=== PATIENT | female | born 1955 | race Caucasian/White ===

== ENCOUNTER 2025-01-31 10:55 | Outpatient (AMB) | payer OTHER, SELFPAY ==
--- NOTE | 2025-01-31 10:57 | MHC.OFFVIS ---
Vital Signs 01/31/25 11:12 Height 5 ft 3 in Weight 211 lb 3 oz BMI 37.4 BP 112/80 Blood Pressure Location Rt brachial Position Sitting Pulse 74 Pulse Source Pulse Oximeter Pulse Oximetry (%) 99 Oxygen Delivery Method Room Air Intake Visit Reasons: lt shoulder pain/ inj Intake Note: Patient presents for shoulder pain and injection. Allergies No Known Allergies Allergy (Verified 01/31/25 11:03) Medication List - Last Reconciled 01/31/25 by Elba Silverman MD amlodipine 5 mg PO DAILY aspirin (Adult Aspirin Regimen) 81 mg PO DAILY atorvastatin 80 mg PO DAILY budesonide-formoterol 160-4.5 mcg/actuation inhalation docusate sodium 100 mg PO DAILY hydrochlorothiazide 25 mg PO DAILY metoprolol tartrate 50 mg PO BID montelukast 10 mg PO DAILY semaglutide (Ozempic) 2 mg subcut QWEEK semaglutide (Ozempic) mg subcut HPI Comments Details: Patient is a 61-year-old year old female with hypertension, hyperlipidemia here today for evaluation of left shoulder pain. Patient states that about October she woke up with left shoulder pain. Had x-rays at an outside facility which was normal. No antecedent trauma, falls or strenuous activity. Currently in physical therapy for the past 2 weeks with no improvement [facility] Surgical History (Updated 01/31/25 @ 11:07 by ANGELA Lim) History of total right knee replacement Family History (Updated 01/31/25 @ 11:10 by ANGELA Lim) Mother Hypertension Sister Hypertension Father Emphysema lung Social History (Updated 01/31/25 @ 11:11 by ANGELA Lim) Household Members: Family Housing: House Alcohol intake: former Comment: rare Patient Tobacco Use Status: Never used Tobacco Current occupational status: employed Current occupation: [employer] Employee Review of Systems Const Details: Review of Systems Constitutional: Denies fever, chills, weight loss ENT: Denies vision changes, eye pain or eye redness, dental caries, dry mouth GI: Denies nausea, vomiting, diarrhea, abdominal pain, change in BM Pulm: Denies SOB, CAMPBELL, hemoptysis, wheezing Cards: Denies chest pain, palpitations Skin: Denies Raynaud's, rash, nail changes, photosensitivity, HIGH LEAD YARDER: Denies headaches, weakness, paresthesias, recurrent falls MSK: as per HPI All other systems reviewed and are unremarkable except noted above Physical Exam Vital signs reviewed Physical Examination CONSTITUITIONAL Patient alert and cooperative. Well appearing and in no apparent painful distress MSK Shoulders: Full range of active range of motion without pain of the right shoulder. Decreased active range of motion of the left shoulder up to about 120 degrees. No tenderness, weakness, swelling, increased warmth or erythema. Positive Krystal[facility] Office Procedures AMB Joint Injection/Aspiration Joint Injection/Aspiration Details: Procedure was explained to the patient and consent was obtained. ? The area of interest was identified and confirmed with patient. ?This was subsequently cleaned with chlorhexidine x3. ? The area was then anesthetized using ethyl chloride spray. 40 mg Kenalog with 1 cc 1% lidocaine was injected without issue. ?Minimal to no bleeding. ?Patient tolerated procedure. Primary Site: left shoulder Prep: site was prepped using aseptic technique and ethochloride spray was applied Injected: 40 mg of, Kenalog, 1% plain lidocaine and in the subcromial space Approach Used: other Procedure: The patient tolerated the procedure well Coding 37430 - Large joint Procedure code (CPT) selection complete Office Meds lidocaine (PF) 10 mg/mL (1 %) injection solution Performing Provider: Elba Silverman MD Performing Location: [facility] [place] Rheumatology Administered by: Elba Silverman MD on 01/31/25 11:35 Dose Route Admin Location Dispensed Lot Number Expiration Date [facility] Dray Driver 1 mL Infiltration left shoulder 2 mL [id number] 12/02/26 92256-093-77 [facility] Kenalog 40 mg/mL suspension for injection Performing Provider: Elba Silverman MD Performing Location: [facility] Rheumatology Administered by: Elba Silverman MD on 01/31/25 11:35 Dose Route Admin Location Dispensed Lot Number Expiration Date [facility] Dray Driver 40 mg intra-articular left shoulder 1 mL [id number] 04/03/26 [address]-8 [employer] Results Reviewed Results Reviewed: No results to review Assessment & Plan Assessment & Plan (1) Left shoulder pain: Code(s): M25.512 - Pain in left shoulder Qualifiers: Chronicity: acute Qualified Code(s): M25.512 - Pain in left shoulder Plan: #Left shoulder pain Patient is a 69-year-old female here today for evaluation of left shoulder pain. Patient likely has some rotator cuff tendonitis. No evidence of frozen shoulder she is able to move joint at least a bit in all planes. Status post steroid injection today. She can continue PT and follow up as needed Plan I spent 30 minutes reviewing the record and labs, taking a history, examining the patient, discussing the treatment plan, ordering diagnostic work up and documenting in the medical record Orders: Orders AMB Joint Injection/Aspiration Today M25.512 - Pain in left shoulder Medications: New lidocaine (PF) 1 mL Infiltration ONCE 2 mL 0RF M25.512 - Pain in left shoulder Kenalog (triamcinolone acetonide) 40 mg intra-articular ONCE 1 mL 0RF NS M25.512 - Pain in left shoulder Coding Level of Care Code New Pt Level 3 (99112) Diagnoses Acute pain of left shoulder M25.512 Chronicity: acute CPT Codes Coding - 44860 Large joint: 65756 - Large joint ([id number])
[2025-01-31 11:12] VITALS: BP 112/80; PULSE 74; O2SAT 99; BMI 37.4
--- OUTSIDE RECORDS SUMMARY | 2025-01-31 12:26 | XMS_ITS | Patient Health Record ---
Author Organization [facility] [place] Address [address] [facility] [place] [address] Care Team Providers Care Healthcare Marketer Name Role Phone Staci Patricia Primary Care Provider Unavailabl e Black, Sophie Unavailable [phone] Allergies Allergen (clinical drug ingredient) Drug/Non Drug Allergy documented on EMR Reaction Allergy Type Onset Date Status Bee Stings (uncoded) Unknown Allergy Active Laurens Nuts (uncoded) myke Allergy Active Shrimp Flavor hives Drug Allergy Act david Reason For Referral No Information Medications Medication SIG (Take, Route, Frequency, Duration) Notes Start Date End Date Status hydroCHLOROthiazide 25 MG as directed Orally Active Atorvastatin Calcium 40 MG 1 tablet Oral ly Once a day for 30 day(s) Active Feldene 20 MG 1 capsule with food Orally Once a day for 30 day(s) 10/18/2019 Active amLODIPine Besylate 5 MG 1 tablet Orally Once a day for 30 day(s) Active Aspirin 81 81 MG 1 tablet Orally Once a day for 30 day(s) Active Metoprolol Succinate 50 MG 1 capsule Ora lly Once a day for 30 day(s) Active Social History Tobacco Use: Social History Observation [...] Are you an other tobacco user? 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 Plan Of Treatment No Information Insurance Providers Payer Name Payer Address Payer Phone Subscriber Number Group Number Insured Name Patient Relationship to Insured Coverage Start Date Coverage End Date [facility] re-[id number] [address] [address] [place] [address] [id number] Babak Espinal Self - patient is the insured Medical (General) History Medical History History ICD Code asthma Hypertension Left Hip Prosthesis Stent Left Diagonal Back pain Hiatal hernia Reflux ( GERD) Measles Chicken pox Vascular grafts Joint implants/screws Heart disease Surgical History Surgery Date(Month/Year) hip surgery, left prosthesis 2017 Stent Left Diagonal 2009? Left Parotid Tumor 2012 Umbilical hernia 1962
--- OUTSIDE RECORDS SUMMARY | 2025-01-31 12:27 | XMS_ITS ---
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 Generated for Sherrelli delmis/Marva/eTransmitting on:?01/31/2025 12:26 PM EDT
--- OUTSIDE RECORDS SUMMARY | 2025-01-31 12:27 | XMS_ITS ---
Author Organization [facility] [place] Address [address] [place] [address] Care Team Providers Care Sld Educational Aide Name Role Phone Staci Patricia Primary Care Provider Sophie Cha [phone] Allergies Allergen (clinical drug ingredient) Drug/Non Drug Allergy documented on EMR Reaction Allergy Type Onset Date Status Bee Stings (uncoded) Unknown Allergy Active Skipwith Nuts (uncoded) myke Allergy Active Shrimp Flavor [...] 01/19/2024 Encounters Encounter [facility] [address] [facility]/19/[facility] Sophie Stoddard Plan Of Treatment No Information Progress Notes * Babak HOLLEYDOB:0 1955 (69 yo F)Acc No.[id number]:01/19/2024 Progress Notes Patient:?Emilia HOLLEY rvis Provider:?Sophie Stoddard DPM :1955???Age:68 Y???Sex:Female D ate:01/19/2024 Address:[address] [place] [address], [id number] Pcp:Staci Patricia Subjective: * Chief Complaints: * ??? * ROS:?General/Constitutional:?Nausea?denies.?Vomiting?denies.?Hunger Thirst?denies.?Loss appetite?denies.?Chills?denies.?Fatigue?denies.?Fever?denies.?Night Sweats?denies.?Unexplained weight loss?denies.?Unexplained weight gain?denies.?HEENTM:?Dentures?denies.?Dizziness?denies.?Glasses/contacts?admits.?Retinopathy?de nies.?Blurred/double vision?denies.?TMJ?denies.?Discharge/drainage?denies.?Implants?denies.?Sore throat?denies.?Dental implants?denies.?Hard of hearing ?denies.?Difficulty chewing/swallowing/speaking?denies.?Nose bleeds?denies.?Sore mouth?denies.?Respiratory:?On Oxygen?denies.?Pneumonia/pleurisy?denies.?Bronchitis?denies.?Emphysema?denies.?C oughing?denies.?Cough blood?denies.?Shortness of breath?denies.?Wheezing?admits.?Cardiovascular:?Pacemaker?denies.?MVP?denies.?WPW?denies.?CHF?denies.?Heart attack?denies.?Septal defect?denies.?Rapid beat?denies.?Chest pain ?denies.?Atrial Fib.?denies.?Murmur/Palpitations?denies.?Gastrointestinal:?Hemorrhoids?denies.?Stomach/Abdominal pain?denies.?Dark blood stool?denies.?Irritable bowel ?denies.?Constipation?denies.?Diarrhea?denies.?Hematology:?Swelling?denies.?Clots?denies.?Varicose Veins?denies.?Bruising?denies.?Bleeding problem?denies.?Genitourinary:?Blood urine?denies.?Frequent/Painfu/urination/bladder control?denies.?Kidney stones?denies.?Infection (UTI)?denies.?Nephropathy?denies.?sex trans dis (STD)?denies.?Prostate?denies.?Musculoskeletal:?Hammertoes?denies.?Bunions?admits.?Back Pain?denies.?Muscle Cramps/ Resting?admits.?Muscle cramps / walking?admits.?Generalized aches and pains?denies.?Weakness?denies.?Integ.:?Guerrero?denies.?Scars?denies.?Corns/calluses?denies.?Ingrown nails?admits.?Painful nails?admits.?Open Sores?denies.?Rashes?denies.?Neurologic:?Difficulty sleeping?denies.?Brain disorder?denies.?Numbness?denies.?Balance trouble?denies.?Confusion?denies.?Fainting/blackouts?denies.?Tingling?denies.?Tr emors?denies.? * Medical History:?Asthma, Hyp ertension, Left Hip Prosthesis, Stent Left Diagonal, Back pain, Hiatal hernia, Reflux ( GERD), Measles, Chicken pox, Vascular grafts, Joint implants/screws, Heart disease. * Surgical History:?hip surger y, left prosthesis 2016, Stent Left Diagonal 2009?, Left Parotid Tumor 2011, Umbilical hernia 1962. * Family History:?Mother: aliv e, diabetes, arthritis, stroke, high blood pressure.?Father: .?Maternal Grand Mother: diabetes, stroke.?Siblings: diabetes.? Father's Half-Sister - Cancer. * Social History:?Tobacco Use:?Tobacco Use/Smoking?Are you a:?nonsmoker ?Additional Findings: Tobacco Non-User?Aggressive non-smoker ?Tobacco use other than smoking?Are you an other tobacco user??No ???Drugs/Alcohol:?Drugs?Have you used drugs other than those for medical reasons in the past 12 months??No ?Alcohol Screen?Did you have a drink containing alcohol in the past year??No ?Points?0 ?Interpretation?Negative ???Miscellaneous:?Caffeine: yes, frequency:, 1-2 cups per day. ?Children: yes, 3. ?Exercise: no. ?Marital status: . 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 * Allergies:?Bee Stings, Brazi l Nuts: myke, Shrimp Flavor: hives. Objective: * Vitals:?Ht: 5 ft 3 in, Wt:21 5, BMI:38.08, Shoe size: 10-10.5, Ht-cm: 160.02 cm, Wt-k.52 kg. Assessment: Plan: * Treatment: * Images: * The named appointment provid er may or may not be the originator of this progress note, and it is not deemed complete until electronically signed by the appointment provider. Sign off status: Pending * Provider:?Sophie Stoddard DPM Date:?2023 Generated for David benites/Marva/Low on:?01/31/2025 12:27 PM EDT
--- OUTSIDE RECORDS SUMMARY | 2025-01-31 12:27 | XMS_ITS ---
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 Generated for Printi delmis/Marva/eTransmitting on:?01/31/2025 12:27 PM EDT
== END 2025-01-31 11:34 | disposition home or self-care (01) ==
LOC: HO.RHE 10:55
PROVIDERS: PCP Internal Medicine; Visit Provider Student in an Organized Health Care Education/Training Program
DX: M25.512 Pain in left shoulder (principal)
CPT/HCPCS: 20610; 99203

== ENCOUNTER → 2025-01-31 10:55 | Outpatient (BNVA) | payer OTHER, SELFPAY | PROVIDERS: PCP Internal Medicine; Visit Provider Student in an Organized Health Care Education/Training Program | DX: M25.512 Pain in left shoulder (principal) | CPT/HCPCS: 20610; J3300 ==

== ENCOUNTER 2025-03-05 13:01 | Outpatient (REF) | payer OTHER, SELFPAY ==
--- NOTE | ~2025-03-05 | XR_ITS ---
EXAMINATION: XR SHOULDER 2 OR MORE VIEWS LEFT HISTORY: M25.512 - Pain in left shoulder COMPARISON: There are no prior studies available for comparison. FINDINGS: Three views of the left shoulder are submitted. Osseous mineralization is normal. There is no fracture or dislocation. The glenohumeral joint space is maintained. There is moderate narrowing of the AC joint. The soft tissues are unremarkable. XR/XR shoulder LT min 2V IMPRESSION: Moderate narrowing of the AC joint. Electronically signed by: Greg Field MD 03/05/2025 03:21 PM EDT
--- OUTSIDE RECORDS SUMMARY | 2025-03-05 14:00 | XMS_ITS | Patient Health Record ---
Author Organization [facility] Address [address] [facility] [place] [address] Care Team Providers Care Nuisance Wildlife Control Operator Name Role Phone Staci Patricia Primary Care Provider Unavailabl e Black, Sophie Unavailable [phone] Allergies Allergen (clinical drug ingredient) Drug/Non Drug Allergy documented on EMR Reaction Allergy Type Onset Date Status Bee Stings (uncoded) Unknown Allergy Active [place] Nuts (uncoded) myke Allergy Active Shrimp Flavor [...] Problem Status W/U Status Risk Notes Problem [id number] Hammer toe of right foot (M20.41) Active confirmed Problem [id number] 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
== END 2025-03-05 13:02 | disposition home or self-care (01) ==
LOC: HO.HOSX 13:01
PROVIDERS: Visit Provider Physician Assistant
DX: M25.512 Pain in left shoulder (principal)
CPT/HCPCS: 73030

== ENCOUNTER 2025-03-05 13:05 | Outpatient (AMB) | payer OTHER, SELFPAY ==
--- NOTE | 2025-03-05 13:22 | A.OFFVIS_ITS ---
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 Patient was seen with Rheumatology on 01/31/25 for her shoulder pain that started around December after she felt a pop with getting dressed. She was given a shoulder injection that had helped a little, as she is now able to sleep on her right side. She also attended physical therapy that provided a little more mobility however she continues to have limited ROM. Her discomfort is located at her bicep area and travels through her clavicle. States her pain is rarely in her shoulder. Allergies bee pollen Allergy (Verified 03/05/25 13:25) Anaphylaxis shrimp Allergy (Verified 03/05/25 13:25) Hives nuts Allergy (Uncoded 03/05/25 13:25) Anaphylaxis Medication List - Last Reconciled 03/05/25 by Kimberlyn Ly PA-C amlodipine 5 mg PO DAILY aspirin (Adult Aspirin Regimen) 81 mg PO DAILY atorvastatin 80 mg PO DAILY budesonide-formoterol 160-4.5 mcg/actuation inhalation docusate sodium 100 mg PO DAILY hydrochlorothiazide 25 mg PO DAILY magnesium glycinate mg PO metoprolol tartrate 50 mg PO BID montelukast 10 mg PO DAILY multivitamin 1 tab PO DAILY semaglutide (Ozempic) mg subcut HPI HPI 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 She states she was getting dressed and reached and felt pain in the shoulder. She states the pain is constant with laying on her side. The pain does radiate down her arm and also into the small and ring finger. She has pain along the deltoid and clavicle with reaching . She also has mild discomfort along the shoulder joint. She has tension along the trap. She has been working with PT. She had a left shoulder injection approx 5 weeks ago. She states her ROM did improve and she is able to sleep on the affected side, but she continues to have limitations with other activities. [facility] Surgical History (Updated 03/05/25 @ 13:29 by NATHALY Bergeron) Hx of heart artery stent Hx of parotidectomy History of hip surgery History of total right knee replacement Family History (Updated 04/30/25 @ 11:10 by ANGELA Lim) Mother Hypertension Sister Hypertension Father Emphysema lung Social History (Updated 01/31/25 @ 11:12 by ANGELA Lim) Household Members: Family Housing: House Alcohol intake: former Comment: rare Patient Tobacco Use Status: Never used Tobacco Current occupational status: employed Current occupation: [employer] Employee Review of Systems Const All systems reviewed & are unremarkable except as noted in HPI and below Physical Exam Vital Signs: BMI result Body Mass Index 37.4 Const General: cooperative and no acute distress Orientation/consciousness: patient oriented x3 Resp Effort & Inspection: normal respiratory effort and able to speak in complete sentences Cardio Peripheral pulses: Peripheral pulses 2+ throughout Neuro General: patient oriented x3 Extrem Other: Left shoulder normal to inspection. She has full range of motion in all planes excluding forward flexion which is limited to 100 degrees. 5/5 rotator cuff strength with mild discomfort. She has a positive [place]'s. Positive [place]. Neurovascularly intact. Results Reviewed Results Reviewed: X-rays of the left shoulder obtained in the office today and reviewed by me are negative for any acute abnormalities. 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 Assessment & Plan Assessment & Plan (1) Biceps tendonitis on left: Code(s): M75.22 - Bicipital tendinitis, left shoulder Category: Medical Plan: Patient has had an injection with rheumatology with some success. She has been working with physical therapy and feels she would like to continue to work on continued strengthening exercises. We will also order an MRI of the left shoulder further evaluate the integrity of the rotator cuff. Once the scan is complete I will contact her to discuss the results. Orders: Orders XR shoulder LT min 2V Today M25.512 - Pain in left shoulder PT Evaluation and Treatment Today M75.22 - Bicipital tendinitis, left shoulder MR shoulder LT wo con Today S46.009A - Unspecified injury of muscle(s) and tendon(s) of the rotator cuff of unspecified shoulder, initial encounter Coding Level of Care Code New Pt Level 3 (67928) Complex EM visit Add On G2211 Diagnoses Biceps tendonitis on left M75.22
[2025-03-05 13:30] VITALS: BMI 37.4
== END 2025-03-05 14:21 | disposition home or self-care (01) ==
LOC: HO.HOS 13:06
PROVIDERS: PCP Internal Medicine; Visit Provider Physician Assistant
DX: M75.22 Bicipital tendinitis, left shoulder (principal)
CPT/HCPCS: 99203

== ENCOUNTER → 2025-03-05 13:08 | Outpatient (BNV) | payer OTHER, SELFPAY | PROVIDERS: Visit Provider Radiology Diagnostic Radiology | DX: M25.812 Other specified joint disorders, left shoulder (principal) | CPT/HCPCS: 73030 ==

== ENCOUNTER → 2025-03-15 17:48 | Outpatient (BNV) | payer OTHER, SELFPAY | PROVIDERS: PCP Internal Medicine; Visit Provider Radiology Diagnostic Radiology | DX: M75.112 Incomplete rotator cuff tear or rupture of left shoulder, not specified as traumatic (principal) | CPT/HCPCS: 73221 ==

== ENCOUNTER 2025-03-15 17:51 | Outpatient (REF) | payer OTHER, SELFPAY ==
--- NOTE | ~2025-03-15 | MR_ITS ---
EXAMINATION: MR SHOULDER, LEFT CLINICAL INFORMATION: Unspecified injury of muscles and tendons of the rotator. Vein left shoulder since November of 2024. PT minimally helpful. Limited range of motion. 69-year-old female. COMPARISON: None TECHNIQUE: Multiplanar multisequence MR imaging of the LEFT shoulder was done without IV contrast. Examination performed on a 1.5 Akosua Siemens unit utilizing standard sequences. FINDINGS: Rotator Cuff and Biceps Tendon: Supraspinatus: There is insertional tear of the most anterior tendon involving the mid distal footplate attachment measuring 5 mm in coronal diameter. This tear measures 8 mm in diameter. In addition, there is an interstitial tear arising from the medial footplate attachment, extending to the approximate myotendinous junction (series 8, image 10; series 11, image 6). This tear measures 16 mm in coronal, by 13 mm in AP diameter. There is tendinopathy of the entire tendon with increased signal and mild thickening. No tendinous retraction or definite full-thickness tear seen. The muscle belly is normal in bulk. Infraspinatus: There is a focal myotendinous region of fluid signal in the anterior fibers of the tendon at the myotendinous junction, measuring 4 x 15 mm (series 8, image 15; series 11, image 13). The tendon is otherwise intact and normal in signal. Muscle belly is otherwise normal. Subscapularis: Mildly increased signal of the tendon is present consistent with tendinopathy. There is no discrete tear. The muscle belly is normal. Teres Minor: Intact and normal in signal. There is no discrete tear. Normal muscle belly. Biceps Long Head: Normally located within the bicipital groove. Normal morphology. The tendon within the rotator interval demonstrates mild thickening and diffusely increased signal consistent with tendinopathy. The anchor is intact. AC Joint and Acromiohumeral Arch: There is a type III acromion. No significant undersurface spurring is evident. There is moderate degenerative arthropathy of the AC joint with joint capsular distention, mild periarticular edema, and mild undersurface and moderate superior surface spurring. There is no supraspinatus outlet stenosis. Glenohumeral Joint and Labrum: There is normal joint fluid. There is no effusion. There are no discrete full-thickness cartilaginous abnormalities identified of the articular humeral head or glenoid. There are no regions of subchondral bone plate edema. Superior labrum has mildly irregular signal, suspicious for but not definitive for superior labral tearing. This extends into the anterior labrum, also suspicious for tearing. The inferior labrum and posterior labrum appear intact. Osseous Structures: No gross bone marrow edema to suggest contusion or fracture. No abnormal infiltrating bone marrow signal is evident. There is a small amount of edema at the greater tuberosity medial footplate, at the region of insertional tearing. Spino-glenoid Notch: Normal. Quadrilateral Space: Normal. Other: There is mildly increased signal throughout the subacromial/subdeltoid bursa suggestive of bursitis. The glenohumeral ligaments appear intact without definite thickening. MR/MR shoulder LT wo con IMPRESSION: 1. Partial insertional tear of the most anterior supraspinatus footplate attachment. In addition, there is an interstitial tear of the supraspinatus tendon arising from the lateral footplate attachment extending to the myotendinous junction. 2. There is a focal myotendinous injury of the infraspinatus tendon, anterior aspect. 3. Tendinopathy of the long head of the biceps tendon within the rotator interval. No long head biceps tear. 4. Mild degenerative arthropathy of the AC joint and glenohumeral joint. No significant cartilaginous defect. 5. Suspect there is degenerative type superior and anterior labral tearing. 6. Mild subacromial/subdeltoid bursitis. Electronically signed by: Stewart Berger MD 03/16/2025 08:16 AM EDT
--- OUTSIDE RECORDS SUMMARY | 2025-03-15 18:25 | XMS_ITS | Patient Health Record ---
Author Organization [facility] Address [address] [facility] [place] [address] Care Team Providers Care Laboratory Immunologist Name Role Phone Staci Patricia Primary Care Provider Unavailabl e Black, Sophie Unavailable [phone] Allergies Allergen (clinical drug ingredient) Drug/Non Drug Allergy documented on EMR Reaction Allergy Type Onset Date Status Bee Stings (uncoded) Unknown Allergy Active [place] Nuts (uncoded) myke Allergy Active Shrimp Flavor [...] Problem Status W/U Status Risk Notes Problem [id number] Hammer toe of right foot (M20.41) Active confirmed Problem [id number] 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
== END 2025-03-15 17:52 | disposition home or self-care (01) ==
LOC: HO.MRI 17:51
PROVIDERS: PCP Internal Medicine; Visit Provider Physician Assistant
DX: S46.002D Unspecified injury of muscle(s) and tendon(s) of the rotator cuff of left shoulder, subsequent encounter (principal)
CPT/HCPCS: 73221

== ENCOUNTER 2025-04-26 11:57 | Outpatient (AMB) | payer OTHER, SELFPAY ==
--- NOTE | 2025-04-26 11:57 | A.OFFVIS_ITS ---
Vital Signs 04/26/25 11:59 Height 5 ft 3 in Weight 211 lb BMI 37.4 Intake Visit Reasons: TH- MRI Shoulder LT review Intake Note: Babak is a 69 year old female who is scheduled for a telephone visit to discuss MRI results of left shoulder. Allergies bee pollen Allergy (Verified 04/26/25 11:59) Anaphylaxis shrimp Allergy (Verified 04/26/25 11:59) Hives nuts Allergy (Uncoded 04/26/25 11:59) Anaphylaxis HPI HPI TH- MRI Shoulder LT review: Details: 69-year-old female presents for telehealth visit left shoulder MRI review. The patient states that she has continued limitations with range of motion of the shoulder. She has had injections in the past with little relief but has not had formal physical therapy for the left shoulder. [facility] Surgical History Hx of heart artery stent Hx of parotidectomy History of hip surgery History of total right knee replacement Family History (Updated 01/31/25 @ 11:10 by ANGELA Lim) Mother Hypertension Sister Hypertension Father Emphysema lung Social History Household Members: Family Housing: House Alcohol intake: former Comment: rare Patient Tobacco Use Status: Never used Tobacco Current occupational status: employed Current occupation: [employer] Employee Review of Systems Const All systems reviewed & are unremarkable except as noted in HPI and below Physical Exam Vital Signs: BMI result Body Mass Index 37.4 Resp Effort & Inspection: normal respiratory effort and able to speak in complete sentences Telehealth Telehealth Telehealth Platform: Telephone Location of provider rendering services: practice address Patient Identification confirmed using: Name, : Yes Telehealth method: voice only Patient verbally consented to treatment: Yes Patient verbally consented to billing insurance company: Yes Patient informed of any privacy concerns related to visit: Yes Minutes spent on Phone/Video with Pt.: 10 Results Reviewed Results Reviewed: MR shoulder LT wo con IMPRESSION: 1. Partial insertional tear of the most anterior supraspinatus footplate attachment. In addition, there is an interstitial tear of the supraspinatus tendon arising from the lateral footplate attachment extending to the myotendinous junction. 2. There is a focal myotendinous injury of the infraspinatus tendon, anterior aspect. 3. Tendinopathy of the long head of the biceps tendon within the rotator interval. No long head biceps tear. 4. Mild degenerative arthropathy of the AC joint and glenohumeral joint. No significant cartilaginous defect. 5. Suspect there is degenerative type superior and anterior labral tearing. 6. Mild subacromial/subdeltoid bursitis. Assessment & Plan Assessment & Plan (1) Partial tear of left rotator cuff: Code(s): M75.112 - Incomplete rotator cuff tear or rupture of left shoulder, not specified as traumatic Category: Medical (2) Biceps tendonitis on left: Code(s): M75.22 - Bicipital tendinitis, left shoulder Category: Medical Plan MRI was reviewed with the patient. I explained to her partial tearing of the rotator cuff could be managed with physical therapy to help strengthen the shoulder and surrounding structures. Given her limitations with range of motion she may develop some improvement with this with therapy however if the tear is chronic there may be continued to be some limitations. She is interested in physical therapy and an order has been placed. She will contact the facility to make an appointment. If symptoms persist or worsen over the next 6-8 weeks she can contact our office and I would recommend she meet with Dr. Levin to discuss whether or not surgical intervention would be beneficial for her. Coding Level of Care Code Tele Est Pt Level 3 (77043) Complex EM visit Add On G2211 Diagnoses Partial tear of left rotator cuff M75.112 Biceps tendonitis on left M75.22
[2025-04-26 11:59] VITALS: BMI 37.4
--- OUTSIDE RECORDS SUMMARY | 2025-04-26 12:40 | XMS_ITS | Clinical Summary ---
Author Organization [facility] Address [address] [place] [address] Phone Care Team Providers Care Regional Transportation Manager Name Role Phone Staci Patricia MD Primary Care Provider + Allergies Active Allergy Reactions Criticality Noted Date Comments Bee Venom Protein (Honey Bee) Anaphylaxis High 11/08/2023 Shrimp 05/19/2023 Other reaction(s): hives Medications albuterol 90 mcg/actuation inhaler Inhale 2 puffs into the lungs every 6 (six) hours as needed for wheezing. 18 g 2 Active budesonide-form oterol (SYMBICORT) 160-4.5 mcg/actuation inhaler Inhale 2 puffs into the lungs 2 (two) times a day. 10.2 g 2 Active guaiFENesin-cod eine (ROBITUSSIN AC) 100-10 mg/5 mL liquid Take 5 mL (10 mg of codeine total) by mouth 4 (four) times a day as needed for cough. 120 mL 2 Active Additional Information Patient not taking.Reported on 11/08/2023 benzonatate (TESSALON) 100 MG capsule Take 1 capsule (100 mg total) by mouth 3 (three) times a day as needed for cough. 20 capsule 2 Active Additional Information Patient not taking.Reported on 11/08/2023 amLODIPine (NORVASC) 5 MG tablet Take 1 tablet by mouth every morning. 3 Active atorvastatin (LIPITOR) 80 MG tablet Take 1 tablet by mouth every morning. 3 Active hydroCHLOROthia zide (HYDRODIURIL) 25 MG tablet Take 1 tablet by mouth every morning. 3 Active montelukast (SINGULAIR) 10 mg tablet Take 1 tablet by mouth every morning. 3 Active Social History Tobacco Use Types Packs/Day Years Used Date Smoking Tobacco: Never Assessed Education Answer Date Recorded Are you interested in more education? Not on teresita e 01/30/2023 Are you concerned about learning? Not on file 01/30/2023 No 01/30/2023 No 01/30/2023 Digital Access Answer Date Recorded No 03/02/2023 No 03/02/2023 Reliable internet access at home? Not on file 03/02/2023 Device with a working camera? Not on file Intimate Partner Violence Answer Date R ecorded Are you denied basic needs s uch as food, clothing, or medical care? No 09/22/2022 In the past 12 months have y ou been in a relationship with a person who hurts, threatens, or tries to control you? No 09/22/2022 Are you denied basic needs s uch as food, clothing, or medical care? No 09/22/2022 In the past 12 months have y ou been in a relationship with a person who hurts, threatens, or tries to control you? No 09/22/2022 Comments Unknown Sex and Gender Information Value Date Recorded Sex Assigned at Not on file Legal Sex Female 8:42 AM EST Gender Identity Not on file Sexual Orientation Not on file Last Filed Vital Signs Vital Sign Reading Time Taken Comments Blood Pressure 129/66 09/22/2022 2:00 PM EST Pulse 94 09/22/2022 2:00 PM EST Temperature 36.7 C (98.1 F) 09/22/2022 9:17 AM EST Respiratory Rate 21 09/22/2022 2:00 PM EST Oxygen Saturation 98% 09/22/2022 2:00 PM EST Inhaled Oxygen Concentration - - Weight 99.8 kg (220 lb) 09/22/2022 9:17 AM EST Height 162.6 cm (5' 4 ) 09/22/2022 9:17 AM EST Body Mass Index 37.76 09/22/2022 9:17 AM EST Plan of Treatment Health Maintenance Due Date Last Done Comments LIPID PANEL 1956 POTASSIUM LEVEL 1956 DEPRESSION SCREENING 1968 SMOKING Hx and SMOKELESS TOBACCO SCREENING 1969 HEPATITIS C SCREENING 1974 SCREENING FOR DIABETES 1991 MAMMOGRAM 1996 COLOGUARD 2001 COLONOSCOPY 2001 COLORECTAL CANCER SCREENING 2001 FIT TEST 2001 FOBT 2001 SIGMOIDOSCOPY 2001 VIRTUAL COLONOSCOPY 2001 PNEUMOCOCCAL VACCINES (50+ years) (2 of 2 - PCV) 2006 07/04/2005 OSTEOPOROSIS SCREENING INITIAL (ONE-TIME) 2021 COVID-19 VACCINE ( season) 2024 07/16/2022, 01/22/2022, 07/07/2021, Additional history exists Adult Td,Tdap Booster 12/31/2027 12/30/2017 , 11/28/2007, 09/03/1996 RSV VACCINE (1 - 1-dose 75+ series) 2031 ZOSTER VACCINES Completed 12/12/2020, 08/13/2020 HEPATITIS A VACCINES Aged Out No long er eligible based on patient's age to complete this topic HIB VACCINES Aged Out No longer eligi ble based on patient's age to complete this topic MENINGOCOCCAL VACCINES (ACWY) Aged Out No longer eligible based on patient's age to complete this topic MENINGOCOCCAL VACCINES (B) Aged Out N o longer eligible based on patient's age to complete this topic Medical Devices Not on file Insurance [facility] POS POS POS POS [facility] POS Care Teams Regional Transportation Manager Relationship Specialty Start Date End Date Staci Patricia MD [address] [place] [phone] PCP - General Internal Medicine 11/08/23 Additional Source Comments The information contained in this document represents components of the legal health record. It is not the complete legal health record.[facility]
--- OUTSIDE RECORDS SUMMARY | 2025-04-26 12:40 | XMS_ITS | Patient Health Record ---
Author Organization [facility] Address [address] [place] [address] Care Team Providers Care Senior Qa Engineer Name Role Phone Staci Patricia Primary Care Provider Unavailabl e Black, Sophie Unavailable [phone] Allergies Allergen (clinical drug ingredient) Drug/Non Drug Allergy documented on EMR Reaction Allergy Type Onset Date Status Bee Stings (uncoded) Unknown Allergy Active [place] Nuts (uncoded) myke Allergy Active Shrimp Flavor hives Drug Allergy Act david Reason For Referral No Information Medications Medication SIG (Take, Route, Frequency, Duration) Notes Start Date End Date Status hydroCHLOROthiazide 25 MG as directed Orally Active Atorvastatin Calcium 40 MG 1 tablet Oral ly Once a day; Duration: 30 day(s) Active Feldene 20 MG 1 capsule with food Orally Once a day; Duration: 30 day(s) 10/18/2019 Active amLODIPine Besylate 5 MG 1 tablet Orally Once a day; Duration: 30 day(s) Active Aspirin 81 81 MG 1 tablet Orally Once a day; Duration: 30 day(s) Active Metoprolol Succinate 50 MG 1 capsule Ora lly Once a day; Duration: 30 day(s) Active Social History Tobacco Use: [...] Problem Status W/U Status Risk Notes Problem Acquired hammer toe of right foot ([id number] 105) Hammer toe of right foot (M20.41) Active confirmed Problem 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 Plan Of Treatment No Information Insurance Providers Payer Name Payer Address Payer Phone Subscriber Number Group Number Insured Name Patient Relationship to Insured Coverage Start Date Coverage End Date [id number] [address] [address] [place] [phone] [id number] Babak Espinal Self - patient is the insured Medical (General) History Medical History History ICD Code asthma Hypertension Left Hip Prosthesis Stent Left Diagonal Back pain Hiatal hernia Reflux ( GERD) Measles Chicken pox Vascular grafts Joint implants/screws Heart disease Surgical History Surgery Date(Month/Year) hip surgery, left prosthesis 2017 Stent Left Diagonal 2009? Left Parotid Tumor 2011 Umbilical hernia 1963
== END 2025-04-26 12:38 | disposition home or self-care (01) ==
LOC: HO.HOS 11:57
PROVIDERS: PCP Internal Medicine; Visit Provider Physician Assistant
DX: M75.112 Incomplete rotator cuff tear or rupture of left shoulder, not specified as traumatic (principal); M75.22 Bicipital tendinitis, left shoulder
CPT/HCPCS: 98966

== ENCOUNTER → 2025-04-26 11:57 | Outpatient (BNVA) | payer OTHER, SELFPAY | PROVIDERS: PCP Internal Medicine; Visit Provider Physician Assistant | DX: M75.112 Incomplete rotator cuff tear or rupture of left shoulder, not specified as traumatic (principal); M75.22 Bicipital tendinitis, left shoulder | CPT/HCPCS: 98966 ==

== ENCOUNTER 2025-06-01 07:00 | Outpatient (RCR) | payer OTHER, SELFPAY ==
[2024-12-29 06:56] VITALS: BP 130/70; PULSE 83; O2SAT 100
== END 2025-06-28 15:12 | disposition home or self-care (01) ==
LOC: HO.PTS 07:00
PROVIDERS: PCP Internal Medicine; Visit Provider Internal Medicine
DX: M75.82 Other shoulder lesions, left shoulder (principal)
CPT/HCPCS: 97012; 97014; 97035; 97110; 97140; 97162; 97164; 97530; 97535

== ENCOUNTER 2025-06-14 12:46 | Outpatient (AMB) | payer OTHER, SELFPAY ==
--- OUTSIDE RECORDS SUMMARY | 2024-01-19 08:00 | XMS_ITS ---
Author Organization [facility] t[place] Address [address] [facility] [place] [address] Care Team Providers Care Concrete Worker Name Role Phone Staci Patricia Primary Care Provider Sophie Cha [phone] Allergies Allergen (clinical drug ingredient) Drug/Non Drug Allergy documented on EMR Reaction Allergy Type Onset Date Status Bee Stings (uncoded) Unknown Allergy Active Boulder Nuts (uncoded) myke Allergy Active Shrimp Flavor hives Drug Allergy Act david Social History Tobacco Use: Social History Observation Description Date Details (start date - stop date) Never Smoker NA - NA Tobacco Use/Smoking Question Answer Notes Are you a: nonsmoker Additional Findings: Tobacco Non-User Aggressive non-smoker Alcohol Screen Question Answer Notes Did you have a drink containing alcohol in the p ast year? No Points 0 Interpretation Negative Tobacco use other than smoking: Question Answer Notes Are you an other tobacco user? No Vital Signs Height 5 ft 3 in in 01/19/2024 Weight 215 lbs 01/19/2024 BMI 38.08 kg/m2 01/19/2024 Encounters Encounter Location Date Provider Diagnosis [address] [address] 01/19/2024 Sophie Stoddard Plan Of Treatment No Information Progress Notes * Babak HOLLEYDOB:0 1955 (69 yo F)Acc No.[id number]:01/19/2024 Progress Notes Patient: Taryn Babak LOVE Provider: Kirit Stoddard DPM :1955 A ge:68 Y S ex:Female Date:01/19/2024 Address:[address] [place] [address], [place], [id number] Pcp:Staci Patricia Subjective: * Chief Complaints: * * ROS: G eneral/Constitutional: Nausea d enies. V omiting d enies. H florian Thirst d enies. L oss appetite d enies. C hills d enies. F atigue d enies.?Fever d enies. N ight Sweats d enies. U nexplained weight loss d enies. U nexplained weight gain d enies. H EENTM: Dentures d enies. D izziness d enies. G lasses/contacts a dmits. R etinopathy d enies. B lurred/double vision d enies. T MJ?denies. D ischarge/drainage d enies. I mplants d enies. S ore throat d enies. D ental implants d enies. H elizabeth of hearing d enies. D ifficulty chewing/swallowing/speaking d enies. N ose bleeds d enies. S ore mouth d enies. ? R espiratory: On Oxygen d enies. P neumonia/pleurisy d enies.?Bronchitis d enies. E mphysema d enies. C oughing d enies. C ough blood?denies. S hortness of breath d enies. W heezing a dmits. C ardiovascular: Pacemaker d enies. 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 W PW d enies. C HF d enies. H eart attack d enies. S eptal defect d enies. R apid beat d enies. C hest pain d enies. A trial Fib. d enies. M urmur/Palpitations d enies. G astrointestinal: Hemorrhoids d enies. S tomach/Abdominal pain d enies. D ark blood stool d enies. I rritable bowel d enies. C onstipation d enies. D iarrhea d enies. H ematology: Swelling d enies. C lots d enies. V aricose Veins d enies. B ruising d enies. B leeding problem d enies. G enitourinary: Blood urine d enies. F requent/Painfu/urination/bladder control d enies. K idney stones d enies. I nfection (UTI) d enies. N ephropathy d enies. s ex trans dis (STD) d enies. P rostate d enies. M usculoskeletal: Hammertoes d enies. B unions a dmits. B ack Pain d enies. M uscle Cramps/ Resting a dmits. M uscle cramps / walking a dmits.?Generalized aches and pains d enies. W eakness d enies. I nteg.: Guerrero d enies. S cars d enies. C orns/calluses?denies. I ngrown nails a dmits. P ainful nails a dmits. O pen Sores d enies. R ashes d enies. N eurologic: Difficulty sleeping d enies. B rain disorder d enies. N umbness d enies. B alance trouble d enies. C onfusion d enies. F ainting/blackouts d enies. T ingling d enies. T remors d enies. * Medical History: A sthma, Hypertension, Left Hip Prosthesis, Stent Left Diagonal, Back pain, Hiatal hernia, Reflux ( GERD), Measles, Chicken pox, Vascular grafts, Joint implants/screws, Heart disease. * Surgical History: h ip surgery, left prosthesis 2016, Stent Left Diagonal 2009?, Left Parotid Tumor 2011, Umbilical hernia 1962. * Family History: M other: alive, diabetes, arthritis, stroke, high blood pressure. F ather: . M aternal Grand Mother: diabetes, stroke. S iblings: diabetes. Father's Half-Sister - Cancer. * Social History: T obacco Use: T obacco Use/Smoking A re you a: n onsmoker A dditional Findings: Tobacco Non-User A ggressive non-smoker Tobacco use other than smoking A re you an other tobacco user? N o D rugs/Alcohol: D rugs H ave you used drugs other than those for medical reasons in the past 12 months? N o Alcohol Screen D id you have a drink containing alcohol in the past year? N o P oints 0 I nterpretation N egative M iscellaneous: C affeine: yes, frequency:, 1-2 cups per day. Children: yes, 3. Exercise: no. Marital status: . 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 * Allergies: B ee Stings, Boulder Nuts: myke, Shrimp Flavor: hives. Objective: * Vitals: H t: 5 ft 3 in, Wt:215, BMI:38.08, Shoe size: 10-10.5, Ht-cm: 160.02 cm, Wt-k.52 kg. Assessment: Plan: * Treatment: * Images: * The named appointment provid er may or may not be the originator of this progress note, and it is not deemed complete until electronically signed by the appointment provider. Sign off status: Pending * Provider: Kirit Stoddard DPM Date: 0 01/19/2024 Generated for David benites/Marva/Low on: 0 06/14/2025 04:55 PM EDT
--- NOTE | 2025-06-14 12:48 | A.OFFVIS_ITS ---
Vital Signs 06/14/25 12:51 Height 5 ft 3 in Weight 211 lb BMI 37.4 BP 120/80 Blood Pressure Location Lt brachial Position Sitting Pulse 74 Pulse Source Pulse Oximeter Pulse Oximetry (%) 100 Oxygen Delivery Method Room Air Intake Visit Reasons: Trigger point INJ Intake Note: Patient presents for Trigger point follow up. Allergies bee pollen Allergy (Verified 06/14/25 12:51) Anaphylaxis shrimp Allergy (Verified 06/14/25 12:51) Hives nuts Allergy (Uncoded 04/26/25 11:59) Anaphylaxis Medication List - Last Reconciled 06/14/25 by Elba Silverman MD amlodipine 5 mg PO DAILY aspirin (Adult Aspirin Regimen) 81 mg PO DAILY atorvastatin 80 mg PO DAILY budesonide-formoterol 160-4.5 mcg/actuation inhalation docusate sodium 100 mg PO DAILY hydrochlorothiazide 25 mg PO DAILY magnesium glycinate mg PO metoprolol tartrate 50 mg PO BID montelukast 10 mg PO DAILY multivitamin 1 tab PO DAILY semaglutide (Ozempic) mg subcut HPI Comments Details: Patient is a 69-year-old year old female with hypertension, hyperlipidemia here today for evaluation of left trigger point Interval History: Patient last seen 01/31/25 with la - New patient visit - Left shoulder pain consistent with frozen shoulder/rotator cuff tendinopathy - Steroid injection given Today - Not on any rheum medications - Left shoulder doing well post steroid injection and PT, now with better ROM - Complaining of left trapezius trigger point, requesting injection Rheumatologic History: Initial history: Patient is a 61-year-old year old female with hypertension, hyperlipidemia here today for evaluation of left shoulder pain. Patient states that about October she woke up with left shoulder pain. Had x- rays at an outside facility which was normal. No antecedent trauma, falls or strenuous activity. Currently in physical therapy for the past 2 weeks with no improvement Current Rheumatology Medication(s): Not on any rheum meds PFSH Surgical History Hx of heart artery stent Hx of parotidectomy History of hip surgery History of total right knee replacement Family History Mother Hypertension Sister Hypertension Father Emphysema lung Social History (Reviewed 06/14/25 @ 12:51 by MICHEL Lim Household Members: Family Housing: House Alcohol intake: former Comment: rare Patient Tobacco Use Status: Never used Tobacco Current occupational status: employed Current occupation: [employer] Employee Review of Systems Const Details: Review of Systems Constitutional: Denies fever, chills, weight loss ENT: Denies vision changes, eye pain or eye redness, dental caries, dry mouth GI: Denies nausea, vomiting, diarrhea, abdominal pain, change in BM Pulm: Denies SOB, CAMPBELL, hemoptysis, wheezing Cards: Denies chest pain, palpitations Skin: Denies Raynaud's, rash, nail changes, photosensitivity, DINING ROOM TABLES SET UP ATTENDANT: Denies headaches, weakness, paresthesias, recurrent falls MSK: as per HPI All other systems reviewed and are unremarkable except noted above Physical Exam Exam Exam: Vital signs reviewed Physical Examination CONSTITUITIONAL Patient alert and cooperative. Well appearing and in no apparent painful distress MSK Tender points? * Tenderness to palpation of the left trapezius Vital Signs: Last Vital Signs Pulse 74 06/14/25 12:51 BP 120/80 06/14/25 12:51 Pulse Ox 100 06/14/25 12:51 Oxygen Delivery Method Room Air 06/14/25 12:51 BMI result Body Mass Index 37.4 Office Procedures AMB Joint Injection/Aspiration Joint Injection/Aspiration Details: Procedure was explained to the patient and informed consent was obtained. ? Risks associated with the procedure were discussed with the patient including but not limited to bleeding, infection, drug reactions and reactions to the topical anesthetic. Patient made aware of signs to look out for infectious complications. The area of interest was identified and confirmed with patient. ?This was subsequently cleaned with chlorhexidine x 2. ? The area was then anesthetized using ethyl chloride spray. 40 mg Kenalog with 1 cc 1% lidocaine was injected without issue. ?Minimal to no bleeding. ?Patient tolerated procedure. Primary Site: other (left trapezius trigger point) Prep: site was prepped using aseptic technique and ethochloride spray was applied Injected: 40 mg of, Kenalog, with 1 mL of and 1% plain lidocaine Procedure: The patient tolerated the procedure well Coding 52735 - Sternocleidomastoid/Piriformis Procedure code (CPT) selection complete Office Meds lidocaine (PF) 10 mg/mL (1 %) injection solution Performing Provider: Elba Silverman MD Performing Location: [facility] [facility] [facility] Administered by: Elba Silverman MD on 06/14/25 13:14 Dose Route Admin Location Dispensed Lot Number Expiration Date [facility] Flood Control Engineer 1 mL Infiltration left trapezius trigger p 2 mL [id number] 12/02/26 6 3323-492-04 [employer] Total Dispensed Waste 2 mL 50 % Kenalog 40 mg/mL suspension for injection Performing Provider: Elba Silverman MD Performing Location: [facility] Administered by: Elba Silverman MD on 06/14/25 13:14 Dose Route Admin Location Dispensed Lot Number Expiration Date [facility] [employer] Control Engineer 40 mg IM left trapezius trigger p 1 mL [id number] 01/02/26 16417 -[id number] [employer] Total Dispensed Waste 1 mL 0 % Results Reviewed Results Reviewed: MR shoulder LT wo con 03/2025 IMPRESSION: 1. Partial insertional tear of the most anterior supraspinatus footplate attachment. In addition, there is an interstitial tear of the supraspinatus tendon arising from the lateral footplate attachment extending to the myotendinous junction. 2. There is a focal myotendinous injury of the infraspinatus tendon, anterior aspect. 3. Tendinopathy of the long head of the biceps tendon within the rotator interval. No long head biceps tear. 4. Mild degenerative arthropathy of the AC joint and glenohumeral joint. No significant cartilaginous defect. 5. Suspect there is degenerative type superior and anterior labral tearing. 6. Mild subacromial/subdeltoid bursitis. Assessment & Plan Assessment & Plan (1) Trigger point of left shoulder region: Code(s): M25.512 - Pain in left shoulder Plan: #Left trapezius trigger point Patient is a 69-year-old female with known rotator cuff/frozen shoulder on the left presents for evaluation of tender point involving her left trapezius. This is likely on background of her physical therapy and shoulder issues. Status post steroid injection of the left trapezius trigger point Plan - s/p trigger point injection - RTC prn Plan I spent 20 minutes reviewing the record and labs, taking a history, examining the patient, discussing the treatment plan, and documenting in the medical record Orders: Orders AMB Joint Injection/Aspiration Today M25.511 - Pain in right shoulder Coding Level of Care Code Est Pt Level 3 (40386) Diagnoses Trigger point of left shoulder region M25.512 CPT Codes Coding - Joint 3: 82048 - Sternocleidomastoid/Piriformis ([id number])
[2025-06-14 12:51] VITALS: BP 120/80; PULSE 74; O2SAT 100; BMI 37.4
--- OUTSIDE RECORDS SUMMARY | 2025-06-14 16:55 | XMS_ITS | Patient Health Record ---
Author Organization [facility] Address [address] [facility] [place] [address] Care Team Providers Care Textile Examiner Name Role Phone Staci Patricia Primary Care Provider Unavailabl e Black, Sophie Unavailable [phone] Allergies Allergen (clinical drug ingredient) Drug/Non Drug Allergy documented on EMR Reaction Allergy Type Onset Date Status Bee Stings (uncoded) Unknown Allergy Active [place] Nuts (uncoded) myke Allergy Active Shrimp Flavor [...] Problem Acquired hammer toe of right foot (1776371724444 105) Hammer toe of right foot (M20.41) Active confirmed 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
--- OUTSIDE RECORDS SUMMARY | 2025-06-14 16:55 | XMS_ITS | Clinical Summary ---
Author Organization [facility] Address [address] [place] [phone] Phone Care Team Providers Care Civil Service Clerk Name Role Phone Staci Patricia MD Primary [...] 2006 07/04/2005 OSTEOPOROSIS SCREENING INITIAL (ONE-TIME) 2021 INFLUENZA VACCINE (#1) 2025 , 07/07/2021, 07/25/2020, Additional history exists COVID-19 VACCINE ( season) 2025 07/16/2022, 01/22/2022, 07/07/2021, Additional history exists Adult [...] topic Medical Devices Not on file Insurance [facility] POS POS POS POS POS POS Care Teams Civil Service Clerk Relationship Specialty Start Date End Date Staci Patricia MD [address] [place] [id number] PCP - General Internal Medicine 11/08/23 Additional Source Comments The information contained in this document represents components of the legal health record. It is not the complete legal health record.[facility]
== END 2025-06-14 13:24 | disposition home or self-care (01) ==
LOC: HO.RHES 12:47
PROVIDERS: PCP Internal Medicine; Visit Provider Student in an Organized Health Care Education/Training Program
DX: M25.511 Pain in right shoulder (principal); M25.512 Pain in left shoulder
CPT/HCPCS: 20552; 99213

== ENCOUNTER → 2025-06-14 12:46 | Outpatient (BNVA) | payer OTHER, SELFPAY | PROVIDERS: PCP Internal Medicine; Visit Provider Student in an Organized Health Care Education/Training Program | DX: M25.512 Pain in left shoulder (principal) | CPT/HCPCS: 20552; J2003; J3301 ==

== ENCOUNTER 2025-08-06 08:21 | Outpatient (REF) | payer OTHER, SELFPAY ==
--- OUTSIDE RECORDS SUMMARY | 2025-08-06 08:39 | XMS_ITS | Patient Health Record ---
Author Organization [facility] Address [address] [facility] [place] [place] [address] Care Team Providers Care Steel Buffer Name Role Phone Staci Patricia Primary Care Provider Unavailabl e Black, Sophie Unavailable [phone] Allergies Allergen (clinical drug ingredient) Drug/Non Drug Allergy documented on EMR Reaction Allergy Type Onset Date Status Bee Stings (uncoded) Unknown Allergy Active [facility] [place] Nuts (uncoded) myke Allergy Active Shrimp Flavor [...] Problem Acquired hammer toe of right foot ([id number] 105) Hammer toe of right foot (M20.41) Active confirmed 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
--- OUTSIDE RECORDS SUMMARY | 2025-08-06 08:40 | XMS_ITS | Clinical Summary ---
Author Organization [facility] Address [address] [place] [phone] Phone Care Team Providers Care Hand Picker Name Role Phone Staci Patricia MD Primary [...] topic Medical Devices Not on file Insurance [facility] POS POS [place] Care Teams Hand Picker Relationship Specialty Start Date End Date Staci Patricia MD [address] [place] [id number] PCP - General Internal Medicine 11/08/23 Additional Source Comments The information contained in this document represents components of the legal health record. It is not the complete legal health record.[facility]
[2025-08-06 13:32] LABS: Alanine Aminotransferase 47 U/L (0-31); Albumin Level 4.3 g/dL (3.5-5.0); Alkaline Phosphatase 67 U/L (39-117); Anion Gap 8 (12-20); Aspartate Amino Transferase 55 U/L (5-31); Blood Urea Nitrogen 15 mg/dL (9-16); Calcium 9.6 mg/dL (8.4-10.2); Carbon Dioxide 28 mmol/L (22-29); Chloride 109 mmol/L (96-108); Cholesterol 148 mg/dL (<200); Estimated Glomerular Filt Rate > 60; HDL Cholesterol 56 mg/dL (>40); Potassium 4.0 mmol/L (3.3-5.1); Sodium 141 mmol/L (135-145); Total Protein 7.2 g/dL (6.5-8.0); Triglycerides 57 mg/dL (<150)
== END 2025-08-06 08:22 | disposition home or self-care (01) ==
LOC: HO.HKASLDS 08:21
PROVIDERS: Visit Provider Internal Medicine
DX: I10 Essential (primary) hypertension (principal); Z13.1 Encounter for screening for diabetes mellitus
CPT/HCPCS: 36415; 80053; 80061; 83036